=== PATIENT | male | born 1980 | race Hispanic/Latino ===

== ENCOUNTER 2022-04-25 09:32 | Emergency (ER) | payer OTHER ==
[~2022-04-25] VITALS: Ht 177.8 cm; Wt 97.5 kg
== END 2022-04-25 10:55 | disposition home or self-care (01) ==
LOC: FSED 09:43
DX: S30.22XA Contusion of scrotum and testes, initial encounter (principal); W23.0XXA Caught, crushed, jammed, or pinched between moving objects, initial encounter; Y92.89 Other specified places as the place of occurrence of the external cause; Y99.0 Civilian activity done for income or pay
CPT/HCPCS: 99283

== ENCOUNTER 2022-07-11 12:30 | Emergency (ER) | payer SELFPAY ==
[~2022-07-11] VITALS: Ht 177.8 cm; Wt 97.5 kg
[2022-07-11] MEDS ORDERED: ASPIRIN 325 MG TAB PO ONE (13:30)
[2022-07-11 13:57] LABS: BASOPHILS % 0.3 % (0.0-1.0); EOSINOPHILS # (AUTO) 0.2 (0.0-0.4); EOSINOPHILS % 3.4 % (0.0-6.0); HEMATOCRIT 51.1 % (38.2-49.6); HEMOGLOBIN 17.5 g/dL (14.0-18.0); LYMPHOCYTES # (AUTO) 1.4 (1.0-3.2); LYMPHOCYTES % 20.8 % (18.0-39.1); MEAN CORPUSCULAR HEMOGLOBIN 28.5 pg (28-32); MEAN CORPUSCULAR HGB CONC 34.2 g/dL (31-35); MEAN CORPUSCULAR VOLUME 83.4 fL (81-99); MONOCYTES # (AUTO) 0.4 (0.2-0.8); MONOCYTES % 6.6 % (4.4-11.3); NEUTROPHILS # (AUTO) 4.5 (2.1-6.9); NEUTROPHILS % 68.6 % (38.7-80.0); PLATELET COUNT 222 x10e3/uL (140-360); RED BLOOD COUNT 6.13 x10e6/uL (4.3-5.7); RED CELL DISTRIBUTION WIDTH 12.2 % (11.7-14.4)
[2022-07-11 14:31] LABS: ALBUMIN 4.2 g/dL (3.5-5.0); ALBUMIN/GLOBULIN RATIO 1.2 (0.8-2.0); ANION GAP 16.2 mmol/L (8-16); CALCIUM 9.1 mg/dL (8.4-10.2); CREATININE, SERUM 1.1 mg/dL (0.72-1.25); POTASSIUM 4.2 mmol/L (3.5-5.1)
[2022-07-11] MEDS ORDERED: METHOCARBAMOL750 MG PO (15:45)
[2022-07-11] MEDS ORDERED: ANAPROX DS550 MG PO (15:45)
[2022-07-11] MEDS ORDERED: PREDNISONE50 MG PO (15:45)
== END 2022-07-11 15:55 | disposition home or self-care (01) ==
LOC: ER 13:05
DX: R07.89 Other chest pain (principal); M54.12 Radiculopathy, cervical region
CPT/HCPCS: 36415; 71045; 72050; 80053; 84484; 85025; 93005; 99283